=== PATIENT | female | born 1965 | race Hispanic/Latino ===

== ENCOUNTER → 2017-09-15 | Day surgery (SDC) | payer BC ==
[~2017-09-15] MED LIST: ATORVASTATIN CA20 MG PO; BLACK COHOSH200 MG PO; CENTRUM SILVER1 EAC3 PO; FAMOTIDINE20 MG PO; FENTANYL CITRATE/PF 100MCG/2 ML INJ ONE; LIDOCAINE HCL 2% LOCAL INJ 5 ML SDV VIAL INJ ONE; LISINOPRIL10 MG PO; MIDAZOLAM HCL 2 MG/2 ML VIAL ONE; MYCOPHENOLATE250 MG PO; PROPOFOL IV EMULSION 10 MG/ML 20 ML VIAL IV ONE
== END | disposition home or self-care (01) ==
LOC: OR 11:42
PROVIDERS: ATTEND Internal Medicine
DX: K29.70 Gastritis, unspecified, without bleeding (principal); K44.9 Diaphragmatic hernia without obstruction or gangrene; I10 Essential (primary) hypertension; R00.1 Bradycardia, unspecified; E78.00 Pure hypercholesterolemia, unspecified; N28.9 Disorder of kidney and ureter, unspecified; Z68.32 Body mass index [BMI] 32.0-32.9, adult
CPT/HCPCS: 43239; 93005; J2001; J2250